=== PATIENT | male | born 1985 | race Asian ===

== ENCOUNTER 2021-05-18 14:51 | Emergency (ER) | payer OTHER ==
[~2021-05-18] VITALS: Ht 185.4 cm; Wt 102.4 kg
[2021-05-18 22:52] LABS: BASO # 0.1 10^3/uL (0.0-0.2); BASO % 0.8 % (0.0-1.0); EOS # 0.1 10^3/uL (0.0-0.5); EOS % 1.3 % (0.0-3.0); HEMATOCRIT 48.1 % (42.0-52.0); HEMOGLOBIN 16.4 g/dl (13.5-17.5); LYMPH # 2.1 10^3/uL (1.5-5.0); LYMPH % 26.3 % (24.0-44.0); MEAN CORPUSCULAR HEMOGLOBIN 31.3 pg (27.0-33.0); MEAN CORPUSCULAR HGB CONC 34.1 g/dl (32.0-36.5); MEAN CORPUSCULAR VOLUME 91.8 fl (80.0-96.0); MONO # 0.6 10^3/uL (0.0-0.8); MONO % 7.8 % (2.0-8.0); NEUTROPHILS % 63.4 % (36.0-66.0); PLATELET COUNT, AUTOMATED 313 10^3/uL (150-450); RED BLOOD COUNT 5.24 10^6/uL (4.30-6.10); WHITE BLOOD COUNT 7.9 10^3/uL (4.0-10.0)
--- NOTE | 2021-05-18 23:08 | REPVR ---
PROCEDURE INFORMATION: Exam: XR Chest Exam date and time: 05/18/2021 10:22 PM Age: 36 years old Clinical indication: Other: Headache; Additional info: Exertional headache TECHNIQUE: Imaging protocol: XR of the chest. Views: 2 views. COMPARISON: No relevant prior studies available. FINDINGS: Lungs: Unremarkable. No consolidation. Pleural spaces: Unremarkable. No pleural effusion. No pneumothorax. Heart/Mediastinum: Unremarkable. No cardiomegaly. Bones/joints: Unremarkable. IMPRESSION: Negative chest. Electronically signed by: Darrin Sanchez On 05/18/2021 23:08:16 PM
--- NOTE | 2021-05-18 23:13 | REPVR ---
PROCEDURE INFORMATION: Exam: CT Head Without Contrast Exam date and time: 05/18/2021 11:03 PM Age: 36 years old Clinical indication: Pain; Headache; Additional info: Headaches exertional TECHNIQUE: Imaging protocol: Computed tomography of the head without contrast. Radiation optimization: All CT scans at this facility use at least one of these dose optimization techniques: automated exposure control; mA and/or kV adjustment per patient size (includes targeted exams where dose is matched to clinical indication); or iterative reconstruction. COMPARISON: No relevant prior studies available. FINDINGS: Brain: Normal. No hemorrhage. Unremarkable white matter. No mass effect. Cerebral ventricles: No ventriculomegaly. Paranasal sinuses: Visualized sinuses are unremarkable. No fluid levels. Mastoid air cells: Visualized mastoid air cells are well aerated. Bones/joints: Unremarkable. No acute fracture. Soft tissues: Unremarkable. IMPRESSION: Negative noncontrast head CT. Electronically signed by: Darrin Sanchez On 05/18/2021 23:12:59 PM
[2021-05-18 23:47] LABS: BLOOD UREA NITROGEN 21 MG/DL (7-18); CARBON DIOXIDE LEVEL 29 MEQ/L (21-32); CHLORIDE LEVEL 105 MEQ/L (98-107); CK-MB VALUE MASS 2.7 NG/ML (<3.6); CPK CREATINE PHOSPHOKINASE 736 U/L (39-308); CREATININE FOR GFR 1.19 MG/DL (0.70-1.30); GLOMERULAR FILTRATION RATE > 60.0 (>60); GLUCOSE, FASTING 97 MG/DL (70-100); MB/CK RELATIVE INDEX 0.37 (< OR =4); POTASSIUM SERUM 4.6 MEQ/L (3.5-5.1); SODIUM LEVEL 140 MEQ/L (136-145); TROPONIN I < 0.02 NG/ML (< 0.10)
[2021-05-19] MEDS ORDERED: NS 1,000 ML IV ONE (00:15)
[2021-05-19 01:06] VITALS: BP 129/74
--- NOTE | 2021-05-19 21:36 | ECGEPIP ---
[facility] - ED Test Date: 2021-05-18 Pat Name: COURTNEY LINO Department: Room: - Gender: Male [employer]: [facility] : 1985 Requested By: JHONNY Shaikh PA-C Order Number: [id number] Reading MD: Naomi Peck Measurements Intervals [place] Rate: 47 P: 62 AL: 158 QRS: 69 QRSD: 90 T: 28 QT: 426 QTc: 377 Interpretive Statements Sinus bradycardia No prior Electronically Signed on 05-19-2021 21:36:28 EDT by Naomi Peck
== END 2021-05-19 01:08 | disposition home or self-care (01) ==
LOC: M ED 14:51
DX: R51.9 Headache, unspecified (principal); E86.0 Dehydration